=== PATIENT | female | born 1990 | race Hispanic/Latino ===

== ENCOUNTER 2018-09-25 12:29 | Emergency (ER) | payer SELFPAY ==
[~2018-09-25 12:29] MED LIST: ACET1TAB12 PO
== END 2018-09-25 13:15 | disposition home or self-care (01) ==
LOC: EDH 12:29
DX: S62.102D Fracture of unspecified carpal bone, left wrist, subsequent encounter for fracture with routine healing (principal); Z98.51 Tubal ligation status; X58.XXXD Exposure to other specified factors, subsequent encounter
CPT/HCPCS: 99281

== ENCOUNTER 2024-12-13 21:25 | Emergency (ER) | payer SELFPAY ==
[~2024-12-13] VITALS: Ht 162.6 cm; Wt 56.7 kg
--- NOTE | 2024-12-13 21:54 | ERN ---
ED Note History of Present Illness Stated Complaint: ANXIETY Chief Complaint: Anxiety/Panic Attack Time Seen by MD: 21:36 Time Seen by Midlevel: 21:45 Dictation: Ms Stewart is a 34-year-old female with no reported chronic health issues who was transported via EMS to the emergency department for evaluation of anxiety and palpitations. She reports feeling anxious for the past 24 hours. She states she feels like her heart is racing, she becomes dizzy, and her mouth feels very dry. She states that she has had similar symptoms in the past but never as severe or long lasting. She denies use of tobacco use. She states she does smoke marijuana but has been trying to decrease amount. She states she has not drank alcohol in three months. She states she has becomes nervous because her mother has a history of myocardial infarction and her grandfather had a CABG. She states her menstrual periods have been very irregular. She states that she was seen earlier this evening at [facility] where she had some labs drawn and was discharged to home with a prescription for hydroxyzine. She Denies fever, chills, shortness of breath, cough, chest pain, edema, abdominal pain, nausea, vomiting, hematemesis, constipation, diarrhea, melena, hematochezia, dysuria, headache, or focal weakness/paresthesia Allergies: Coded Allergies: No Known Drug Allergies (Verified Allergy, Unknown, 12/13/24) Home Meds Active Scripts Acetaminophen with Codeine (Tylenol with Codeine #3 Tablet) 1 Each Tablet, 1-2 TAB PO Q4-6 PRN for PAIN, #20 TAB Prov:MAYNOR WATSON AGACNP 09/15/18 Past Medical History Past Medical History: Anxiety Surgical History: BTL Surgical History Other: HERNIA Social History: Drugs (smokes marijuana), ETOH (stopped drinking 3 months ago) RN Note Reviewed/Agreed w/PFSH: Yes Review of System Dictation REVIEW OF SYSTEMS: CONSTITUTIONAL: Patient denies fevers, chills, sweats and weight changes. EYES: Patient denies any visual symptoms. EARS, NOSE, AND THROAT: No difficulties with hearing. No symptoms of rhinitis or sore throat. CARDIOVASCULAR: Patient denies chest pains, orthopnea and paroxysmal nocturnal dyspnea. Reports palpitations. States her heart is racing. RESPIRATORY: No dyspnea on exertion, no wheezing or cough. GI: No nausea, vomiting, diarrhea, constipation, abdominal pain, hematochezia or melena. : No urinary hesitancy or dribbling. No nocturia or urinary frequency. No abnormal urethral discharge. MUSCULOSKELETAL: No myalgias or arthralgias. NEUROLOGIC: No chronic headaches, no seizures. Patient denies numbness, tingling or weakness. Reports dizziness. PSYCHIATRIC: Patient denies problems with mood disturbance. Denies intent harm self or others. Denies recent stressors. Reports feeling anxious. ENDOCRINE: No excessive urination or excessive thirst. DERMATOLOGIC: Patient denies any rashes or skin changes. Initial Vital Sign VS Vital Signs Date Time Temp Pulse Resp B/P (MAP) Pulse Ox O2 Delivery O2 Flow Rate FiO2 12/13/24 21:30 98.1 91 16 125/83 98 Room Air 0 Physical Exam Dictation Vital signs: Reviewed. Afebrile Constitutional: Restless/anxious Head/Face: Normocephalic, atraumatic. Eyes: Periorbital areas with no swelling, redness, or edema. Lids and lashes are normal. Conjunctival injection is absent. Sclera anicteric. Pupils equal, round, reactive to light. ENT: Pinnas intact and no signs of trauma or erythema. Ear canals clear and no discharge. TMs no erythema. No nasal discharge or bleeding noted. Oropharynx with no exudate, redness, swelling, masses, exudates, or evidence of obstruction. Uvula midline. Mucous membranes moist. Neck: Trachea midline, no masses palpated, and no cervical lymphadenopathy. No swelling. Supple, full range of motion. Chest/Axilla: No tenderness, no crepitus, no paradoxical movement, no retractions. Cardiovascular: Regular rate, regular rhythm, no murmur, no gallops. Symmetric pulses. No peripheral edema. Normotensive; BP 125/83. Respiratory: Respirations even and unlabored. Lung sounds clear; no wheezes, rales or rhonchi. Room air SpO2 98% Gastrointestinal: Inspection is normal. No distention is appreciated. Bowel sounds are normal. No mass or organomegaly . There is no tenderness. No rebound. No rigidity. No voluntary or involuntary guarding. No Hreman's sign. Neurological: Normal speech, gross motor function intact, gross sensory function intact. No focal weakness/Paresthesia. Ambulates with steady gait. Musculoskeletal/Extremities: All extremities have full range of motion, no pain or tenderness on palpation. Symmetric pulses. Integumentary: Intact. Skin is normal color, warm and dry. Cap refill less than 2 seconds. Results (Laboratory/Radiology) Laboratory/Radiology Laboratory Tests Test 12/14/24 00:40 Urine Color YELLOW (YELLOW) Urine Appearance CLOUDY (CLEAR) H Urine pH 5.5 (5.0-8.0) Urine Specific [place] 1.024 (1.001-1.031) Urine Protein 10 mg/dL (NEGATIVE) H Urine Glucose (UA) NEGATIVE mg/dL (NEGATIVE) Urine Ketones 10 mg/dL (NEGATIVE) H Urine Occult Blood LARGE (NEGATIVE) H Urine Nitrate NEGATIVE (NEGATIVE) Urine Bilirubin NEGATIVE mg/dL (NEGATIVE) Urine Urobilinogen 3 mg/dL (0.2-1.0) H Urine Leukocyte Esterase 500 Gopi/uL (NEGATIVE) H Urine RBC 11-25 /HPF (0-1) H Urine WBC 11-25 /HPF (0-1) H Urine Squamous Epithelial Cells MANY /HPF (0-2) Urine Bacteria RARE /HPF (None Seen) Urine HCG, Qualitative NEGATIVE (NEGATIVE) Labs Reviewed?: Yes EKG Comment: EKG Interpretation: Time Reviewed: 2218 Ventricular rate: 94 bpm PA Interval: 127 ms QRS duration: [address] segment elevation or depression. Clinical impression: Sinus rhythm EKG Reviewed and interpreted by Dr Janel Alvarado ED Course ED Course Orders Procedure Category Date Status Time 12 Lead Ekg Tracing- EKG 12/13/24 Complete Technical 21:42 Diazepam 5 Mg/Ml 2 Ml PHA 12/13/24 Complete Syg (Valium 5 Mg/M 22:00 Urinalysis Profile LAB 12/13/24 Complete 21:50 ,Urine Test LAB 12/13/24 Complete 21:50 Culture Urine BARRETT 12/14/24 In Process 00:48 Current Medications Medications (Trade) Dose Ordered Sig/Kalee Route PRN Reason Start Time Stop Time Status Last Admin Dose Admin Diazepam (VALium 5 MG/ML 2 ML SYG) 5 mg ONCE ONCE IM 12/13/24 22:00 12/13/24 22:01 DC 12/14/24 01:09 Vital Signs Date Time Temp Pulse Resp B/P (MAP) Pulse Ox O2 Delivery O2 Flow Rate FiO2 12/13/24 21:30 98.1 91 16 125/83 98 Room Air 0 Uneventful course. Vital signs remained stable; afebrile and normotensive with room air SpO2 98-100%. Twelve lead EKG reflects a sinus rhythm without ST elevation or depression. U hCG negative. UA cloudy; + protein, ketones, bacteria, leukocyte esterase and UWBC 11-25. UCX sent. She received IM dose Valium x1 as well as Nitrofurantoin 100mg po. . she is now calm and denies palpitations or feelings anxiety. She denies intent harm self or others. Discussed findings with patient and answered all questions. She is follow up with her primary care provider for re-evaluation of symptoms and ongoing management. She may benefit from referral to outpatient psych services Medical Decision Making MDM MDM: Differential diagnosis: Anxiety reaction, cardiac arrhythmia, Rationale: Tests considered and ordered secondary to shared decision making include: EKG, lab Previous outside records reviewed: Old ER visits. Risk of complication and/or morbidity or mortality of patient management: None Medications-Per medication reconciliation Need for hospitalization: Patient does not meet criteria for hospitalization. Need for emergency major/minor surgery: No There are no social concerns with this patient. Prescription drug management: Nitrofurantoin Prescriptions will include symptomatic care Patient's prior external medical records from other ER visits were reviewed by me as indicated. Prior testing and results from previous visits were reviewed. Prior tests were taken into account with medical decision making and resource utilization, independent historian/historians were used to obtain complete medical history. I independently interpreted the test that were performed, results were reviewed by me and considered findings on radiology if ordered. Medical management and examination interpretation discussions were had by me with other qualified healthcare professionals as indicated for the patient's care. DX & DISP Disposition: Discharge Departure Impression: Primary Impression: Anxiety Additional Impressions: Palpitations, UTI (urinary tract infection) Condition: Stable Scripts Nitrofurantoin Macrocrystal (Nitrofurantoin) 100 Mg Capsule 1 CAP PO BID for 7 Days, #14 CAP 0 Refills Prov: ALMA ARCOS MANAGER TEST 12/14/24 Additional Instructions: You were evaluated today for anxiety, palpitations, and dizziness. Your vital signs were normal, and your EKG showed a normal sinus rhythm with no signs of heart attack or abnormal rhythm. Your urine test was negative. Your urine test showed signs of infection which means you have a urinary tract infection. You were started on an antibiotic (nitrofurantoin) to treat the infection. Continue the antibiotic twice daily for seven days. Continue it until it is all gone; even if you start to feel better. You may also take Tylenol or ibuprofen as needed for pain or fever. Drink plenty of fluids to help flush the infection from your bladder. Empty her bladder often and do not hold it . White from the front to back after using the restroom. Your symptoms are most consistent with anxiety or panic related episodes. He received an intramuscular dose of Valium5 mg in the ED for symptom relief. Home you should rest and drink plenty of fluids. Avoid caffeine, nicotine, and energy drinks which can worsened palpitations and anxiety. Continue the hydroxyzine as prescribed by the previous provider for anxiety. Do not combine hydroxyzine or other sedatives with alcohol, marijuana or other substances that can cause drowsiness. Avoid driving, operating machinery, or making important decisions for the next several hours after taking sedating medication. Try slow deep breathing or relaxation exercises when you feel anxious. Maintain a regular sleep schedule. Reduce or avoid tobacco and marijuana use as both can increase heart rate and anxiety. Follow up with your primary care physician in the next 3-5 days for re-evaluation and discussion of long-term management options. If anxiety or panic attacks are recurring, your provider may consider for of the behavioral health or psychiatry for therapy and/or medication management. Return to the ER immediately if you develop: New or worsening chest pain, shortness of breath, or fainting. Fast or irregular heartbeat that does not resolve. Severe anxiety, confusion, or agitation not relieved with medication. Thoughts of self-harm or feeling unsafe. It he is reassuring that your heart rate and EKG are normal today. Anxiety can cause very real physical symptoms such as chest tightness, palpitations, dizziness, and dry mouth. The symptoms are not dangerous, but they can be distressing; treatment focuses on managing triggers, relaxation, and sometimes medication or therapy for prevention Referrals: SELF,REFERRAL (PCP) Time of Disposition: 01:14 ALMA ARCOS Dec 13, 2024 21:54
--- NOTE | 2024-12-13 22:25 | EKG ---
[facility] Test Date: 2024-12-13 Test Time: 22:19:23 Pat Name: ANNELIESE KOVACS Department: ED Room: Gender: F Practice Support Specialist: 08 : 1990 Requested By: ALMA ARCOS Order Number: [id number] Reading MD: Angelica Jeffries Measurements Intervals [place] Rate: 94 P: 76 VT: 127 QRS: 68 QRSD: 86 T: 19 QT: 366 QTc: 458 Interpretive Statements Sinus rhythm Compared to ECG 01/03/2024 07:41:22 Sinus tachycardia no longer present Electronically Signed On 12-14-2024 10:25:56 CDT by Angelica Jeffries Please click the below link to view image of tracing.
[2024-12-14 00:47] LABS: APPEARANCE,URINE CLOUDY (CLEAR); GLUCOSE, URINE (UA) NEGATIVE (NEGATIVE); LEUKOCYTE ESTERASE ,URINE 500 Leu/uL (NEGATIVE); NITRATE,URINE NEGATIVE (NEGATIVE); OCCULT BLOOD,URINE LARGE (NEGATIVE)
[2024-12-14 00:48] LABS: ADD UA MICROSCOPIC YES
[2024-12-14 00:50] LABS: SQUAMOUS EPITHELIAL CELL,UR MANY /HPF (0-2)
[2024-12-14 00:51] LABS: HCG,QUALITATIVE URINE NEGATIVE (NEGATIVE)
[2024-12-14] MEDS ORDERED: NITR100C PO (01:15)
[2024-12-14] MEDS: NITROFURANTOIN MONOHYD/M-CRYST 100 MG CAPSULE PO ONE (01:26)
[2024-12-14 01:32] VITALS: BP 132/74; PULSE 82; RESP 18; TEMP 98.4; O2SAT 98
== END 2024-12-14 01:37 | disposition home or self-care (01) ==
LOC: EDH 21:25
DX: F41.9 Anxiety disorder, unspecified (principal); R00.2 Palpitations; N39.0 Urinary tract infection, site not specified; F10.90 Alcohol use, unspecified, uncomplicated; F12.90 Cannabis use, unspecified, uncomplicated; Z79.899 Other long term (current) drug therapy
CPT/HCPCS: 99284; 87086; 81001; 81025; 93005; 96372; J3360

== ENCOUNTER 2024-12-23 05:17 | Emergency (ER) | payer SELFPAY ==
[~2024-12-23] VITALS: Ht 162.6 cm; Wt 56.7 kg
[~2024-12-23 05:17] MED LIST changes: +NITR100C PO
[2024-12-23 05:36] LABS: ADD UA MICROSCOPIC YES; APPEARANCE,URINE CLOUDY (CLEAR); GLUCOSE, URINE (UA) NEGATIVE (NEGATIVE); LEUKOCYTE ESTERASE ,URINE 25 Leu/uL (NEGATIVE); NITRATE,URINE NEGATIVE (NEGATIVE); OCCULT BLOOD,URINE MODERATE (NEGATIVE)
[2024-12-23 05:39] LABS: SQUAMOUS EPITHELIAL CELL,UR MANY /HPF (0-2)
--- NOTE | 2024-12-23 05:46 | ERN ---
ED Note History of Present Illness Stated Complaint: C/O FREQUENT URINATION Chief Complaint: Urinary Frequency Time Seen by MD: 05:23 Dictation: Patient is a 34-year-old female with a past medical history of anxiety who presented to the ER complaining of urinary frequency. Patient was evaluated at this emergency room on 12/13/24 and was found to have UTI she was discharged home on nitrofurantoin, stated the she took medication for 10 days and since she stopped she started with the urinary frequency again. When asked about fever or chills she denies. What who stated that she does have episodes of feeling cold/and warm. Allergies: Coded Allergies: No Known Drug Allergies (Verified Allergy, Unknown, 12/13/24) Home Meds Active Scripts Potassium Chloride (Potassium Chloride) 20 Meq Tab.er.prt, 20 MEQ PO BID, #7 TAB Prov:SUDARSHAN BLANTON MD 12/23/24 Cephalexin Monohydrate (Keflex) 500 Mg Cap, 1 CAP PO TID for 10 Days, #30 CAP 0 Refills Prov:SUDARSHAN BLANTON MD 12/23/24 Nitrofurantoin Macrocrystal (Nitrofurantoin) 100 Mg Capsule, 1 CAP PO BID for 7 Days, #14 CAP 0 Refills Prov:ALMA ARCOS BOWLING BALL WEIGHER AND PACKER 12/14/24 Acetaminophen with Codeine (Tylenol with Codeine #3 Tablet) 1 Each Tablet, 1-2 TAB PO Q4-6 PRN for PAIN, #20 TAB Prov:MAYNOR WATSON AGACNP 09/15/18 Past Medical History Past Medical History: No Pertinent History Surgical History: None Surgical History Other: HERNIA Social History: Drugs, ETOH LMP: Dec 15, 2024 Review of System Dictation NEGATIVE EXCEPT PER HPI Constitutional: Negative for fever,chills, and weight loss Eyes: Negative for injury, pain,redness, and discharge ENT: Negative for injury,pain or swelling Cardiovascular: denies chest pain, palpitations, and edema Respiratory: Negative for shortness of breath, cough, and wheezing, Abdomen/GI: Negative for abdominal pain, nausea, vomiting, diarrhea, and constipation Back: Negative for injury and pain : Frequency MS/Extremity: Negative for injury and deformity Skin: Negative for rash, and discoloration Neuro: Negative for headache, weakness, numbness, tingling, and seizure Psych: Negative for suicide ideation, homicidal ideation, and hallucinations Initial Vital Sign VS Vital Signs Date Time Temp Pulse Resp B/P (MAP) Pulse Ox O2 Delivery O2 Flow Rate FiO2 12/23/24 05:18 97.5 94 20 129/87 99 Room Air Physical Exam Dictation General: awake, alert, NAD Head/Face: Normocephalic, atraumatic Eyes: PERRL, EOMI, vision at baseline ENT: oral cavity clear, TMs clear, no signs of infection Neck: Trachea midline, supple, no nuchal rigidity Cardiovascular: RRR, normal S1/S2, No MRGs, no JVD Respiratory: CTAB, no respiratory distress, No rales or wheezes Abdomen: Soft , no tender Skin: Warm, dry, normal turgor, no rash MS/Extremity: Pulses equal, no cyanosis, neurovascular intact, FROM Neuro: COAx4, GCS 15, strength 5/5, CN 2-12 intact, normal cerebellar exam, normal gait, Psych: Normal behavior, mood, and affect normal Results (Laboratory/Radiology) Laboratory/Radiology Laboratory Tests Test 12/23/24 05:17 12/23/24 05:54 Urine Color YELLOW (YELLOW) Urine Appearance CLOUDY (CLEAR) H Urine pH 5.5 (5.0-8.0) Urine Specific [place] 1.024 (1.001-1.031) Urine Protein NEGATIVE mg/dL (NEGATIVE) Urine Glucose (UA) NEGATIVE mg/dL (NEGATIVE) Urine Ketones 5 mg/dL (NEGATIVE) H Urine Occult Blood MODERATE (NEGATIVE) H Urine Nitrate NEGATIVE (NEGATIVE) Urine Bilirubin NEGATIVE mg/dL (NEGATIVE) Urine Urobilinogen 0.2 mg/dL (0.2-1.0) Urine Leukocyte Esterase 25 Gopi/uL (NEGATIVE) H Urine RBC 2-5 /HPF (0-1) H Urine WBC 2-5 /HPF (0-1) H Urine Squamous Epithelial Cells MANY /HPF (0-2) Urine Bacteria None /HPF (None Seen) Urine HCG, Qualitative NEGATIVE (NEGATIVE) White Blood Count 7.0 K/uL (4.8-10.8) Red Blood Count 4.18 MIL/uL (4.00-5.50) Hemoglobin 13.2 g/dL (12.0-16.0) Hematocrit 37.1 % (36-48) Mean Corpuscular Volume 88.8 fL (79-99) Mean Corpuscular Hemoglobin 31.6 pg (27.0-33.0) Mean Corpuscular Hemoglobin Concent 35.6 g/dL (32.0-36.0) Red Cell Distribution Width 12.2 % (11.0-15.5) Platelet Count 339 K/uL (130-400) Mean Platelet Volume 10.8 fL (7.5-10.5) H Immature Granulocyte % (Auto) 0.3 % (0-1) Neutrophils (%) (Auto) 52.5 % (40.0-77.0) Lymphocytes (%) (Auto) 34.3 % (21.0-51.0) Monocytes (%) (Auto) 9.9 % (3.0-13.0) Eosinophils (%) (Auto) 2.7 % (0.0-8.0) Basophils (%) (Auto) 0.3 % (0.0-5.0) Neutrophils # (Auto) 3.7 K/uL (1.8-7.7) Lymphocytes # (Auto) 2.4 K/uL (1.0-4.8) Monocytes # (Auto) 0.7 K/uL (0.1-1.0) Eosinophils # (Auto) 0.19 K/uL (0.00-0.70) Basophils # (Auto) 0.02 K/uL (0.00-0.20) Absolute Immature Granulocyte (auto 0.02 K/uL (0-1) Nucleated Red Blood Cells 0.0 % (0.0-0.19) Sodium Level 139 mmol/L (136-145) Potassium Level 3.0 mmol/L (3.5-5.1) *L Chloride Level 105 mmol/L (101-111) Carbon Dioxide Level 25 mmol/L (21-32) Blood Urea Nitrogen 8 mg/dL (7-18) Creatinine 0.4 mg/dL (0.5-1.0) L Glomerular Filtration Rate Calc 134 mL/min (>90) Random Glucose 107 mg/dL (70-105) H Total Calcium 8.6 mg/dL (8.5-10.1) Magnesium Level 2.10 mg/dL (1.80-2.40) ED Course ED Course Orders Procedure Category Date Status Time Urinalysis Profile LAB 12/23/24 Complete 05:23 ,Urine Test LAB 12/23/24 Complete 05:29 Cbc With Differential LAB 12/23/24 Complete 05:40 Basic Metabolic Panel LAB 12/23/24 Complete 05:40 Ceftriaxone 1g Vial PHA 12/23/24 Complete (Rocephine 1g Inj) 06:00 Potassium Chloride PHA 12/23/24 In Process 10meq/100ml ([place] 06:30 Potassium Chloride PHA 12/23/24 Complete 20meq Er (K-Dur/Klor- 06:30 Magnesium LAB 12/23/24 Complete 06:24 Current Medications Medications (Trade) Dose Ordered Sig/Kalee Route PRN Reason Start Time Stop Time Status Last Admin Dose Admin Ceftriaxone Sodium (ROCEphine 1G INJ) 1 gm ONCE ONCE IVPB 12/23/24 06:00 12/23/24 06:01 DC 12/23/24 05:56 Potassium Chloride 100 ml @ 100 mls/hr ONCE ONCE IV 12/23/24 06:30 12/23/24 07:29 Potassium Chloride (K-Dur/Klor-Con 20meq) 40 meq ONCE ONCE PO 12/23/24 06:30 12/23/24 06:31 DC 12/23/24 06:31 Vital Signs Date Time Temp Pulse Resp B/P (MAP) Pulse Ox O2 Delivery O2 Flow Rate FiO2 12/23/24 05:18 97.5 94 20 129/87 99 Room Air Medical Decision Making MDM 34 Year old female with a past medical history of anxiety, recent UTI treated with the nitrofurantoin times 10 days, reports urinary frequency after complete treatment yesterday. Urinary tract infection Anxiety Ordered UA, CBC and BMP DX & DISP Disposition: Discharge Departure Impression: Primary Impression: Anxiety Additional Impressions: UTI (urinary tract infection), Hypokalemia Condition: Stable Scripts Potassium Chloride (Potassium Chloride) 20 Meq Tab.er.prt 20 MEQ PO BID, #7 TAB Prov: SUDARSHAN BLANTON MD 12/23/24 Cephalexin Monohydrate (Keflex) 500 Mg Cap 1 CAP PO TID for 10 Days, #30 CAP 0 Refills Prov: SUDARSHAN BLANTON MD 12/23/24 Additional Instructions: RETURN TO ER FOR ANY ACUTE OR WORSENING SYMPTOMS. FOLLOW-UP IN 1-2 DAYS WITH PRIMARY PROVIDER FOR RECHECK OF TODAY'S SYMPTOMS. Referrals: SELF,REFERRAL (PCP) SUDARSHAN BLANTON MD Dec 23, 2024 05:46
[2024-12-23 06:01] LABS: IMMATURE GRANULOCYTE ABSOLUTE 0.02 K/uL (0-1); NUCLEATED RED BLOOD CELLS 0.0 % (0.0-0.19); PLATELET COUNT (AUTO) 339 K/uL (130-400); RED BLOOD CELL COUNT(AUTO) 4.18 MIL/uL (4.00-5.50); RED CELL DISTRIBUTION WIDTH 12.2 % (11.0-15.5); WHITE BLOOD COUNT (AUTO) 7.0 K/uL (4.8-10.8)
[2024-12-23] MEDS ORDERED: CEPH500B PO (06:06)
[2024-12-23 06:10] LABS: CREATININE 0.4 mg/dL (0.5-1.0); GLOMERULAR FILTR. RATE CALC 134.0 mL/min (>90); GLUCOSE,RANDOM 107.0 mg/dL (70-105); SODIUM SERUM 139.0 mmol/L (136-145); UREA NITROGEN, BLOOD 8.0 mg/dL (7-18)
[2024-12-23] MEDS: PoTASSium chloRIDE 20MEQ ER 20 MEQ ERTAB PO ONE (06:31)
[2024-12-23] MEDS ORDERED: POTA-202 PO (06:47)
[2024-12-23 07:05] VITALS: BP 132/65; PULSE 82; RESP 18; TEMP 98.2; O2SAT 98
== END 2024-12-23 07:06 | disposition home or self-care (01) ==
LOC: EDH 05:17
DX: F41.9 Anxiety disorder, unspecified (principal); N39.0 Urinary tract infection, site not specified; E87.6 Hypokalemia; Z79.899 Other long term (current) drug therapy; Z98.890 Other specified postprocedural states
CPT/HCPCS: 99284; 96365; 83735; 80048; 85025; 81001; 81025; 36415; J0696